=== PATIENT | female | born 1965 | race Two or more races ===

== ENCOUNTER 2022-02-21 22:03 | Emergency (ER) | payer BC ==
[~2022-02-21] VITALS: Ht 165.1 cm; Wt 49.9 kg
--- NOTE | 2022-02-21 22:12 | NUR ---
BIBS. LOWER LIP SWELLING X 10 MIN HOOK TENDER. ALLERGIC TO WHEAT. AMBULATORY, PLACED ON BED, AAOX4.
[2022-02-21] MEDS ORDERED: DEXAMETHASONE SOD PHOSPHATE 10 MG/ML VIAL IM ONE (22:30)
[2022-02-21] MEDS ORDERED: diphenhydrAMINE HCL 50 MG/ML VIAL IM ONE (22:30)
[2022-02-21] MEDS ORDERED: FAMOTIDINE (20 MG) 20 MG TABLET PO ONE (22:30)
[2022-02-21] MEDS ORDERED: diphenhydrAMINE HCL 50 MG/ML VIAL ONE (22:35)
[2022-02-21] MEDS ORDERED: DEXAMETHASONE SOD PHOSPHATE 10 MG/ML VIAL ONE (22:35)
[2022-02-21] MEDS ORDERED: FAMOTIDINE (20 MG) 20 MG TABLET ONE (22:36)
[2022-02-22] MEDS ORDERED: EPIN0.3P3 IM (00:12)
--- NOTE | 2022-02-22 00:20 | NUR ---
Patient discharged to home in stable condition. Written and verbal after care instructions given. Patient verbalizes understanding of instruction. Pt ambulatory with a steady gait
[2022-02-22 00:21] VITALS: BP 111/80
== END 2022-02-22 00:21 | disposition home or self-care (01) ==
LOC: ER 22:11
DX: T78.3XXA Angioneurotic edema, initial encounter (principal); Z79.899 Other long term (current) drug therapy
CPT/HCPCS: 99284; 96372 ×2; J1100; J1200